=== PATIENT | male | born 1975 | race Caucasian/White ===

== ENCOUNTER 2017-05-05 14:05 | Day surgery (SDC) | payer MEDICARE, BC ==
[~2017-05-05] VITALS: Ht 170.2 cm; Wt 58.2 kg
[~2017-05-05 14:05] MED LIST: ALPR-475 PO; CHOL100012 PO; ENOX80SY5 SQ; HYDR100T25 PO; ISOS30TA8 PO; LABE200T3 PO; LOSA100T6 PO; METO25TA35 PO; MYCO250C4 PO; OMEP-110 PO; OXYC-302 PO; PARO10TA56 PO; PRAV20TA2 PO; PRED20TA PO
[2017-05-05] MEDS ORDERED: MIDAZOLAM 1 MG/ML, 2ML ONE (14:08)
[2017-05-05] MEDS ORDERED: FENTANYL PF 100 MCG/2ML ONE ×3 (14:08→16:03)
[2017-05-05] MEDS ORDERED: SODIUM CHLORIDE 0.9% 1,000 ML IV SCH (14:20)
[2017-05-05 14:26] VITALS: BP 137/97
[2017-05-05] MEDS ORDERED: HYDROCORTISONE 100 MG INJ. ONE (14:57)
[2017-05-05] MEDS ORDERED: PROPOFOL 10 MG/ML, 20ML ONE (14:58)
[2017-05-05] MEDS ORDERED: CEFAZOLIN 1,000 MG ONE (14:58)
[2017-05-05] MEDS ORDERED: ROCURONIUM 10 MG/ML ONE (14:58)
[2017-05-05] MEDS ORDERED: GLYCOPYRROLATE 0.2MG/1ML, 5ML ONE (14:58)
[2017-05-05] MEDS ORDERED: NEOSTIGMINE 1 MG/ML, 10ML ONE (14:58)
[2017-05-05] MEDS ORDERED: hydrALAzine 20 MG/ML, 1ML IV PRN (15:00)
[2017-05-05] MEDS ORDERED: ONDANSETRON 2MG/ML, 2ML IVPush PRN (15:00)
[2017-05-05] MEDS ORDERED: OXYcodone 5 MG/5 ML ORAL.SOL UDC PO PRN (15:00)
[2017-05-05] MEDS ORDERED: PROMETHAZINE 25 MG/ML, 1ML IV PRN (15:00)
[2017-05-05] MEDS ORDERED: LABETALOL 5MG/ML, 20ML IV PRN (15:00)
[2017-05-05] MEDS ORDERED: HEPARIN 5,000 UNITS/ML, 1ML ONE (15:28)
[2017-05-05] MEDS ORDERED: BUPIVACAINE/PF-EPI 0.5% 1:200K INFIL ONE (15:33)
[2017-05-05] MEDS ORDERED: OXYcodone 5 MG/5 ML ORAL.SOL UDC ONE (16:03)
[2017-05-05] MEDS: FENTANYL PF 100 MCG/2ML IV PRN ×2 (16:09→16:22)
[2017-05-05] MEDS ORDERED: PROMETHAZINE 25 MG/ML, 1ML ONE (16:30)
[2017-05-05] MEDS ORDERED: HYDROmorphone 1 MG/ML, 1ML ONE ×2 (16:31→16:55)
[2017-05-05] MEDS: HYDROmorphone 1 MG/ML, 1ML IV PRN ×4 (16:34→17:02)
== END 2017-05-05 18:00 ==
LOC: OR 14:05
PROVIDERS: ATTEND Surgery Vascular Surgery
DX: T85.611A Breakdown (mechanical) of intraperitoneal dialysis catheter, initial encounter (principal); I12.0 Hypertensive chronic kidney disease with stage 5 chronic kidney disease or end stage renal disease; N18.6 End stage renal disease; Y83.8 Other surgical procedures as the cause of abnormal reaction of the patient, or of later complication, without mention of misadventure at the time of the procedure; Y92.89 Other specified places as the place of occurrence of the external cause; Z86.718 Personal history of other venous thrombosis and embolism; K21.9 Gastro-esophageal reflux disease without esophagitis
CPT/HCPCS: 36415; 49324; 77001; 80047; C1750; C1751; J0690; J1170; J1644; J1720; J2250; J2550; J2704; J2710; J3010; J7030; J3490

== ENCOUNTER 2017-11-17 09:43 | Day surgery (SDC) | payer BC, MEDICARE ==
[~2017-11-17] VITALS: Ht 170.2 cm; Wt 63.5 kg
[2017-11-17] MEDS ORDERED: BUPIVACAINE/PF 0.5% ONE (09:53)
[2017-11-17] MEDS ORDERED: EPINEPHRINE 1 MG/ML, 1ML ONE (09:53)
[2017-11-17] MEDS ORDERED: HEPARIN 1,000 UNITS/ML, 10ML ONE (09:53)
[2017-11-17] MEDS ORDERED: SODIUM CHLORIDE 0.9% 1,000 ML IV SCH (10:22)
[2017-11-17] MEDS ORDERED: hydrALAzine 20 MG/ML, 1ML ONE (10:55)
[2017-11-17] MEDS ORDERED: hydrALAzine 20 MG/ML, 1ML IV ONE (11:00)
[2017-11-17] MEDS ORDERED: PLEASE ENTER HEIGHT AND WEIGHT MC SCH (11:00)
[2017-11-17 11:16] VITALS: BP 158/118
[2017-11-17] MEDS ORDERED: FENTANYL PF 250 MCG/5ML ONE (11:27)
[2017-11-17] MEDS ORDERED: MIDAZOLAM 1 MG/ML, 2ML ONE (11:27)
[2017-11-17 11:28] VITALS: BP 154/96
[2017-11-17] MEDS ORDERED: GLYCOPYRROLATE 0.4 MG/2 ML, 2ML ONE (11:29)
[2017-11-17] MEDS ORDERED: NEOSTIGMINE 1 MG/ML, 10ML ONE (11:29)
[2017-11-17] MEDS ORDERED: CEFAZOLIN 1,000 MG ONE (11:29)
[2017-11-17] MEDS ORDERED: WATER-INJECTION,STERILE 10 ML IV ONE (11:29)
[2017-11-17] MEDS ORDERED: PROPOFOL 10 MG/ML, 20ML ONE (11:29)
[2017-11-17] MEDS ORDERED: ROCURONIUM 10MG/ML,5ML ONE (11:29)
[2017-11-17] MEDS ORDERED: hydrALAzine 20 MG/ML, 1ML IV PRN (12:00)
[2017-11-17] MEDS ORDERED: ONDANSETRON 2MG/ML, 2ML IVPush PRN (12:00)
[2017-11-17] MEDS ORDERED: PROMETHAZINE 25 MG/ML, 1ML IV PRN (12:00)
[2017-11-17] MEDS ORDERED: OXYcodone 5 MG/5 ML ORAL.SOL UDC PO PRN (12:00)
[2017-11-17] MEDS ORDERED: LABETALOL 5MG/ML, 20ML IV PRN (12:00)
[2017-11-17] MEDS ORDERED: PROMETHAZINE 12.5 MG SUPP PR PRN (12:00)
[2017-11-17] MEDS ORDERED: ACETAMINOPHEN 325 MG TABLET PO PRN (12:00)
[2017-11-17] MEDS ORDERED: FENTANYL PF 100 MCG/2ML IV PRN (12:00)
[2017-11-17] MEDS ORDERED: HYDROmorphone 1 MG/ML, 1ML IV PRN (12:00)
[2017-11-17] MEDS ORDERED: morphine SULFATE 10 MG/ML, 1ML IV PRN (12:00)
[2017-11-17] MEDS ORDERED: OXYcodone 5 MG/5 ML ORAL.SOL UDC ONE (12:53)
[2017-11-17] MEDS ORDERED: ACETAMINOPHEN 650 MG/20.3 ML UDC ONE (12:53)
[2017-11-17] MEDS ORDERED: FENTANYL PF 100 MCG/2ML ONE (13:05)
== END 2017-11-17 14:50 | disposition home or self-care (01) ==
LOC: OR 09:43
PROVIDERS: ATTEND Surgery Vascular Surgery
DX: N19 Unspecified kidney failure (principal)
CPT/HCPCS: 36415; 49324; 80047; 93005; C1750; J0171; J0360; J0690; J1644; J2250; J2704; J2710; J3010; J3490; J7030